=== PATIENT | male | born 1955 | race Caucasian/White ===

== ENCOUNTER 2017-05-31 11:56 | Outpatient (CLI) | payer OTHER ==
--- NOTE | 2017-05-31 12:35 | XRAY Report ---
THREE-VIEW LEFT FOOT: 05/31/2017 CLINICAL INDICATION: Pain, edema laterally. FINDINGS: AP, lateral, oblique views of the left foot demonstrate mild osteoarthritis, with mild guido lux valgus. There is no evidence of acute fracture or dislocation. Small plantar calcaneal spur is present. Lateral soft tissue swelling is noted. IMPRESSION: MILD OSTEOARTHRITIS. NO EVIDENCE OF ACUTE FRACTURE. JOB #: [id number] EXT JOB #:[id number]
== END 2017-05-31 11:57 | disposition home or self-care (01) ==
LOC: DI 11:56
PROVIDERS: ATTEND Podiatrist
DX: M79.672 Pain in left foot (principal)

== ENCOUNTER 2020-07-21 09:50 | Outpatient (CLI) | payer MEDICARE | END 2020-07-21 09:51 | disposition home or self-care (01) | LOC: COV 09:50 | PROVIDERS: ATTEND Family Medicine | DX: Z20.828 Contact with and (suspected) exposure to other viral communicable diseases (principal) ==

== ENCOUNTER 2021-10-08 12:52 | Outpatient (CLI) | payer MEDICARE ==
--- NOTE | 2021-10-08 14:51 | Ultrasound Report ---
PROCEDURE: Bladder INDICATIONS: FREQUENCY OF MICTURITION TECHNIQUE: Focus sonographic evaluation of the bladder was performed. COMPARISON: None. FINDINGS: The bladder demonstrates a prevoid bladder volume of 185 mL without focal or diffuse wall thickening. Bilateral ureteral jets are identified. Postvoid images demonstrate bladder volume of 4.5 mm. The pr ostate is slightly enlarged measuring 3.3 x 3.8 x 4.6 cm. Mild mass effect on the adjacent bladder wa ll. IMPRESSION: No significant postvoid residual. Mild prostatomegaly. Reviewed by: Carlyle Bauman DO on 10/08/2021 1:50 PM [facility] Approved by: Carlyle Bauman DO on 10/08/2021 1:50 PM [facility] Station ID: [id number]
== END 2021-10-08 12:53 | disposition home or self-care (01) ==
LOC: DI 12:52
PROVIDERS: ATTEND Internal Medicine
DX: R35.0 Frequency of micturition (principal); N40.1 Benign prostatic hyperplasia with lower urinary tract symptoms

== ENCOUNTER 2022-10-27 12:31 | Outpatient (CLI) | payer MEDICARE ==
--- NOTE | 2022-10-27 15:06 | Ultrasound Report ---
PROCEDURE: Testicle INDICATIONS: EPIDIDYMITS TECHNIQUE: Real-time scanning was performed of the scrotum and testicles, with image documentation. Color and p ulse Doppler interrogation was performed of both testicles. COMPARISON: None. FINDINGS: Right: Testicle is normal in size at 4.1 x 3.0 x 2.6 cm, and homogenous in echotexture. Epididymis is normal in overall size and morphology. Small hydrocele. Varicocele. Overlying scrotal skin is norm al in thickness. Left: Testicle is normal in size at 4.4 x 2.9 x 2.4 cm, and homogeneous in echotexture. Epididymis is normal in overall size and morphology. Small hydrocele. Varicocele. Left varicocele is larger than the right varicocele. Overlying scrotal skin is normal in thickness. Left epididymal cyst measuring 3 mm. Doppler: Color and pulse Doppler demonstrate normal and symmetric arterial flow in both testicles. No abnormal increased flow to either epididymis. IMPRESSION: 1. No evidence of testicular mass, testicular torsion, epididymitis, or orchitis. 2. Bilateral varicoceles, left greater than right. 3. Small bilateral hydroceles. Reviewed by: Oren Nur MD on 10/27/2022 3:05 PM PST Approved by: Oren Nur MD on 10/27/2022 3:05 PM PST Station ID: [id number]
== END 2022-10-27 12:32 | disposition home or self-care (01) ==
LOC: DI 12:31
PROVIDERS: ATTEND Registered Nurse
DX: I86.1 Scrotal varices (principal); N43.3 Hydrocele, unspecified